=== PATIENT | male | born 2000 | race Caucasian/White ===

== ENCOUNTER 2019-05-30 20:48 | Emergency (ER) | payer OTHER ==
[2019-05-30 21:01] VITALS: BP 131/91
[2019-05-30] MEDS ORDERED: ACETAMINOPHEN 325 MG TABLET PO ONE (21:12)
[2019-05-30] MEDS ORDERED: DEXAMETHASONE SOD PHOS INJ 10 MG/1 ML VIAL IV ONE (21:13)
[2019-05-30] MEDS ORDERED: KETOROLAC TROMETHAMINE INJ/PF 30 MG/1 ML SDV IV ONE (21:13)
--- NOTE | 2019-05-30 21:15 | ER Document Report ---
ED Medical Screen (RME) - General Chief Complaint: Nausea/Vomiting/Diarrhea Stated Complaint: VOMITING,NAUSEA Time Seen by Provider: 05/30/19 21:10 Mode of Arrival: Ambulatory Information source: Patient Notes: 18-year-old male presented to ED for sore throat nausea vomiting and diarrhea x3 days with a temperature. He states today his temperature is 103 pulse is 120. I did recheck his temperature it was 103 and his pulse was 120. He states he took 600 mg of ibuprofen at 2 PM. He has not had anything since then suffer some cough medicine. He states his throat is very sore. It is red and inflamed. I did order blood urine chest x-ray strep Toradol Decadron and Tylenol. I will give him fluids to drink while he is waiting. I have greeted and performed a rapid initial assessment of this patient. A comprehensive ED assessment and evaluation of the patient, analysis of test results and completion of medical decision making process will be conducted by an additional ED providers. TRAVEL OUTSIDE OF THE [place] IN LAST 30 DAYS: No - Related Data Allergies/Adverse Reactions: No Known Allergies Allergy (Verified 05/30/19 21:11) Past Medical History - Social History Frequency of alcohol use: None Drug Abuse: None Physical Exam - Vital signs Vitals: Temp Pulse Resp BP Pulse Ox 103.0 F H 119 H 18 131/91 H 97 05/30/19 20:57 05/30/19 20:57 05/30/19 20:57 05/30/19 20:57 05/30/19 20:57 Course - Vital Signs Vital signs: Temp Pulse Resp BP Pulse Ox 103.0 F H 119 H 18 131/91 H 97 05/30/19 20:57 05/30/19 20:57 05/30/19 20:57 05/30/19 20:57 05/30/19 20:57
[2019-05-30] MEDS ORDERED: ONDANSETRON HCL INJ/PF 4 MG/2 ML SDV IV ONE (21:22)
[2019-05-30 21:51] LABS: ABSOLUTE LYMPHOCYTES (AUTO) 1.4 10^3/uL (0.5-4.7); ABSOLUTE MONOCYTES (AUTO) 1.2 10^3/uL (0.1-1.4); ABSOLUTE NEUT (AUTO) 5.8 10^3/uL (1.7-8.2); BASOPHILS % (AUTO) 0.1 % (0-2); EOSINOPHILS % (AUTO) 0.2 % (0-6); HEMATOCRIT 44.2 % (37.9-51.0); HEMOGLOBIN 15.1 g/dL (13.5-17.0); LYMPHOCYTES % (AUTO) 16.2 % (13-45); MEAN CORPUSCULAR HGB CONC 34.2 g/dL (32.0-36.0); MEAN CORPUSCULAR VOLUME 79 fl (80-97); MONOCYTES % (AUTO) 14.6 % (3-13); PLATELET COUNT 191 10^3/uL (150-450); RED CELL DISTRIBUTION WIDTH 13.1 % (11.5-14.0); SEGMENTED NEUTROPHILS % (AUTO) 68.9 % (42-78); TOTAL CELLS COUNTED % (AUTO) 100 %; WHITE BLOOD COUNT 8.4 10^3/uL (4.0-10.5)
[2019-05-30 21:57] LABS: APPEARANCE,URINE CLEAR; BILIRUBIN,URINE NEGATIVE (NEGATIVE); COLOR,URINE YELLOW; GLUCOSE, URINE NEGATIVE (NEGATIVE); KETONES,URINE NEGATIVE (NEGATIVE); LEUKOCYTE ESTERASE,URINE NEGATIVE (NEGATIVE); NITRITE,URINE NEGATIVE (NEGATIVE); PROTEIN,URINE 30 mg/dL (NEGATIVE); URINE SPECIFIC GRAVITY 1.016; UROBILINOGEN,URINE NEGATIVE mg/dL (<2.0)
[2019-05-30 22:10] LABS: ALBUMIN 4.7 g/dL (3.5-5.0); ALKALINE PHOSPHATASE 59 U/L (38-126); ANION GAP 12 (5-19); ASPARTATE AMINO TRANSFERASE 28 U/L (17-59); BILIRUBIN,DIRECT 0.2 mg/dL (0.0-0.4); BILIRUBIN,TOTAL 0.6 mg/dL (0.2-1.3); BLOOD UREA NITROGEN 12 mg/dL (7-20); CALCIUM 9.3 mg/dL (8.4-10.2); CARBON DIOXIDE 29 mmol/L (22-30); CHLORIDE 99 mmol/L (98-107); GLUCOSE 117 mg/dL (75-110); TOTAL PROTEIN 7.9 g/dL (6.3-8.2)
--- NOTE | 2019-05-30 22:43 | RADIOLOGY REPORT (SQ) ---
Chest 2 view on 05/30/2019 CLINICAL INDICATION: Fever, nausea and vomiting and diarrhea COMPARISON: None FINDINGS: The lungs are clear. Cardiac, hilar and mediastinal contours are within normal limits. Pulmonary vascularity is within normal limits. No bony abnormality is noted. IMPRESSION: No active disease.
[2019-05-31] MEDS ORDERED: ONDANSETRON ODT 4 MG TAB (6 TAB/ER DISP) PO PRN (00:34)
--- NOTE | 2019-05-31 00:39 | ER Document Report ---
ED General - General Chief Complaint: Nausea/Vomiting/Diarrhea Stated Complaint: VOMITING,NAUSEA Time Seen by Provider: 05/30/19 21:10 Mode of Arrival: Ambulatory Notes: Patient is a pleasant 18-year-old male presents with complaint of sore throat, vomiting, diarrhea. He says symptoms initially started with some diarrhea and some nausea yesterday. He also has had some sore throat at that time. Today he started having some vomiting. He said he vomited 2-3 times. The temp of 103 upon arrival. He was given Decadron, Toradol, and Zofran shortly after being triaged by the nurse practitioner. Patient says he feels much better. His fever and tachycardia have resolved. He says that his had similar symptoms and was tested for strep throat and this was negative. He said that she was treated anyways for strep throat despite negative testing. He says she started to feel better. Patient denies any neck stiffness. No abdominal pain. No other complaints this time. No difficulty breathing or swallowing. TRAVEL OUTSIDE OF THE [place] IN LAST 30 DAYS: No - Related Data Allergies/Adverse Reactions: No Known Allergies Allergy (Verified 05/30/19 21:11) Past Medical History - General Information source: Patient - Social History Smoking Status: Current Every Day Smoker Frequency of alcohol use: None Drug Abuse: None Family History: Reviewed & Not Pertinent Patient has suicidal ideation: No Patient has homicidal ideation: No Review of Systems - Review of Systems Notes: My Normal Review Basic REVIEW OF SYSTEMS: CONSTITUTIONAL : Fever EENT: Sore throat CARDIOVASCULAR: Denies chest pain. RESPIRATORY: Denies cough, cold, or chest congestion. Denies shortness of breath, difficulty breathing, or wheezing. GASTROINTESTINAL: Denies abdominal pain. Vomiting and diarrhea MUSCULOSKELETAL: Denies neck or back pain or joint pain or swelling. SKIN: Denies rash or skin lesions. NEUROLOGICAL: Denies altered mental status or loss of consciousness. Denies headache. Denies weakness or paralysis or loss of use of either side. Denies problems with gait or speech. Denies sensory or motor loss. ALL OTHER SYSTEMS REVIEWED AND NEGATIVE. Physical Exam - Vital signs Vitals: Temp Pulse Resp BP Pulse Ox 103.0 F H 119 H 18 131/91 H 97 05/30/19 20:57 05/30/19 20:57 05/30/19 20:57 05/30/19 20:57 05/30/19 20:57 - Notes Notes: General Appearance: Well nourished, alert, cooperative, no acute distress, no obvious discomfort. Not septic or toxic appearing Vitals: reviewed, See vital signs table. Head: no swelling or tenderness to the head Eyes: PERRL, EOMI, Conjuctiva clear Mouth: No decreasd moisture Throat: Some erythema of the pharynx. Tonsils are not significantly enlarged. Some clear vesicular type lesions on the throat. No exudates. No peritonsillar inflammation or swelling. Uvula is midline. Neck: Supple, no neck tenderness, Lungs: No wheezing, No rales, No rhonci, No accessory muscle use, good air exchange bilaterally. Heart: Normal rate, Regular rythm, No murmur, no rub Abdomen: Normal BS, soft, No rigidity, No abdominal tenderness, No guarding, no rebound, no abdominal masses, no organomegaly Extremities: strength 5/5 in all extremities, good pulses in all extremities, no swelling or tenderness in the extremities, no edema. Skin: warm, dry, appropriate color, no rash Neuro: speech clear, oriented x 3, normal affect, responds appropriately to questions. Course - Re-evaluation Re-evalutation: 05/31/19 00:39 I suspect patient most likely has viral pharyngitis. He has no exudates. Tonsils are just a bit inflamed. He also has associated vomiting and diarrhea. His strep test is negative. We will send his throat swab for culture. I informed him if it grows out anything positive requiring antibiotic treatment we will call him immediately. I did offer the patient IV fluids patient says he f eels much better after Zofran would rather rehydrate at home. Patient's vital signs are improved and she looks well clinically. At this time patient will be discharged home but is strongly encouraged to return to ER if he has worsening pain, difficulty breathing or swelling, fevers not responding to Tylenol Motrin, or if recurrent vomiting. Patient agrees with plan and will be discharged home. Dictation attestation - Vital Signs Vital signs: Temp Pulse Resp BP Pulse Ox 103.0 F H 119 H 18 131/91 H 97 05/30/19 20:57 05/30/19 20:57 05/30/19 20:57 05/30/19 20:57 05/30/19 20:57 - Laboratory Result Diagrams: 05/30/19 21:38 05/30/19 21:38 Laboratory results interpreted by me: 05/30/19 05/30/19 05/30/19 21:38 21:38 21:38 RBC 5.60 H MCV 79 L Yates % (Auto) 14.6 H Glucose 117 H Urine Protein 30 H Discharge - Discharge Clinical Impression: Vomiting and diarrhea Pharyngitis Qualifiers: Pharyngitis/tonsillitis etiology: unspecified etiology Qualified Code(s): J02.9 - Acute pharyngitis, unspecified Condition: Good Disposition: HOME, SELF-CARE Additional Instructions: You have what appears to be pharyngitis. This is inflammation of the throat that is usually related to a virus. Currently your swab looking for bacterial causes is negative. It will be sent for culture. If it grows out any bacteria in the next 2 days we will call you to call in a prescription for an antibiotic. We have given you a dose of a steroid which will help with your inflammation and pain in your throat. Please drink cold liquids. Please take Tylenol and Motrin for inflammation and pain. Please return to ER if you have difficulty breathing, fevers, or feel that you are worsening. Follow-up with your doctor in 2-3 days for reevaluation. I have given you a bottle of the medication called Joannefran. This is a nausea medication. You can take this medication as 1 tablet dissolved in mouth every 4 hours as needed for nausea. Please drink lots of clear liquids and stay well-hydrated. Forms: Return to Work
== END 2019-05-31 01:05 | disposition home or self-care (01) ==
LOC: ER 20:48
DX: J02.9 Acute pharyngitis, unspecified (principal); R11.2 Nausea with vomiting, unspecified; R19.7 Diarrhea, unspecified; R50.9 Fever, unspecified; F17.200 Nicotine dependence, unspecified, uncomplicated
CPT/HCPCS: 36415; 87070; 87880; 85025; 87077; 86308; 80053; 81001; 83605; 71046; J1885; J2405; J1100; 96374; 96375; 99284